=== PATIENT | female | born 1980 | race Two or more races ===

== ENCOUNTER 2018-06-18 14:23 | Emergency (ER) | payer OTHER ==
[~2018-06-18] VITALS: Ht 165.1 cm; Wt 65.8 kg
[2018-06-18] MEDS ORDERED: CLINDAMYCIN HC150 MG PO (20:07)
[2018-06-18] MEDS ORDERED: KETO10TA2 PO (20:07)
[2018-06-18] MEDS ORDERED: INTESTINEX680 M1 PO (20:07)
== END 2018-06-18 20:21 | disposition home or self-care (01) ==
LOC: ER 14:23
DX: L72.3 Sebaceous cyst (principal)